=== PATIENT | male | born 1965 | race Caucasian/White ===

== ENCOUNTER 2024-12-07 15:51 | Emergency (ER) | payer SELFPAY ==
[~2024-12-07] VITALS: Ht 177.8 cm; Wt 80.9 kg
[2024-12-07 16:33] LABS: BASO # 0.1 10^3/uL (0.0-0.2); BASO % 0.6 % (0.0-1.0); EOS # 0.2 10^3/uL (0.0-0.5); EOS % 1.9 % (0.0-3.0); HEMATOCRIT 44.5 % (42.0-52.0); HEMOGLOBIN 15.5 g/dl (13.5-17.5); LYMPH % 35.8 % (24.0-44.0); MEAN CORPUSCULAR HGB CONC 34.8 g/dl (32.0-36.5); MEAN CORPUSCULAR VOLUME 86.1 fl (80.0-96.0); MONO # 0.5 10^3/uL (0.0-0.8); MONO % 6.3 % (2.0-8.0); NEUTROPHILS # 4.6 10^3/uL (1.5-8.5); PLATELET COUNT, AUTOMATED 184 10^3/uL (150-450); RED BLOOD COUNT 5.17 10^6/uL (4.30-6.10); WHITE BLOOD COUNT 8.3 10^3/uL (4.0-10.0)
[2024-12-07 17:08] LABS: BLOOD UREA NITROGEN 22 MG/DL (9-23); CARBON DIOXIDE LEVEL 32 MMOL/L (20-31); CHLORIDE LEVEL 99 MMOL/L (98-107); CREATININE FOR GFR 0.83 MG/DL (0.70-1.30); GLOMERULAR FILTRATION RATE > 60.0 (>49); GLUCOSE, FASTING 307 MG/DL (74-106); SODIUM LEVEL 142 MMOL/L (136-145)
[2024-12-07 17:11] LABS: INR 0.94; PARTIAL THROMBOPLASTIN TIME 26.6 SECONDS (24.8-34.2); PROTHROMBIN TIME 12.9 SECONDS (12.5-14.5)
[2024-12-07] MEDS ORDERED: ISOVUE-370 76% 100ML VIAL As Ordered ONE (17:23)
[2024-12-07] MEDS: LABETALOL 100MG/20ML VIAL IV STA ×2 (18:28→18:55)
[2024-12-07] MEDS ORDERED: LABE200T5 PO (19:56)
[2024-12-07 20:00] VITALS: BP 152/93; TEMP 97.9; O2SAT 95
[2024-12-07] MEDS: LABETALOL 200 MG TAB PO ONE (20:00)
== END 2024-12-07 20:12 | disposition home or self-care (01) ==
LOC: M ED 15:51
DX: I10 Essential (primary) hypertension (principal); H53.131 Sudden visual loss, right eye; Z79.899 Other long term (current) drug therapy
CPT/HCPCS: 70450; 70496; 70498; 80048; 85025; 85610; 85730; 93005; 96374; 99284; J1920; Q9967

== ENCOUNTER → 2024-12-30 | Outpatient (REF) | payer OTHER ==
[~2024-12-30] MED LIST: LABE200T5 PO
[2024-12-30 18:38] LABS: PSA SCREENING 1.13 NG/ML (< 4.00)
[2024-12-30 18:42] LABS: THYROID STIMULATING HORMONE 2.585 uIU/ML (0.55-4.78)
[2024-12-30 18:43] LABS: ALBUMIN 3.9 G/DL (3.2-5.2); ALKALINE PHOSPHATASE 89 U/L (40-129); ALT/SGPT 31 U/L (7.0-40); AST/SGOT 15 U/L (<34); BILIRUBIN,TOTAL 0.5 MG/DL (0.3-1.2); BLOOD UREA NITROGEN 23 MG/DL (9-23); CALCIUM LEVEL 9.8 MG/DL (8.3-10.6); CARBON DIOXIDE LEVEL 30 MMOL/L (20-31); CHLORIDE LEVEL 102 MMOL/L (98-107); CHOLESTEROL LEVEL 196 MG/DL (<200); CHOLESTEROL RISK RATIO 5.79 (<5); CREATININE FOR GFR 0.92 MG/DL (0.70-1.30); GLOMERULAR FILTRATION RATE > 60.0 (>49); GLUCOSE, FASTING 180 MG/DL (74-106); HDL CHOLESTEROL 33.8 MG/DL (>40); LDL CHOLESTEROL 100.8 MG/DL (<100); NON-HDL-C 162.2 MG/DL; POTASSIUM SERUM 4.8 MMOL/L (3.5-5.1); SODIUM LEVEL 141 MMOL/L (136-145); TOTAL PROTEIN 7.6 G/DL (5.7-8.2); TRIGLYCERIDES LEVEL 307 MG/DL (<150)
[2024-12-30 18:44] LABS: TOTAL 25(OH) VITAMIN D 28.9 NG/ML (20.0-100.0)
[2024-12-30 18:54] LABS: HEMOGLOBIN A1c 9.1 % (4.0-6.0)
[2024-12-30 19:08] LABS: HIV 1&2 SCREEN NEGATIVE (NEGATIVE)
[2024-12-30 19:15] LABS: HEPATITIS C VIRUS ABY INDEX 0.04 INDEX (<0.8)
== END ==
LOC: M LAB REF 17:35
PROVIDERS: ATTEND Physician Assistant
DX: I10 Essential (primary) hypertension (principal); E55.9 Vitamin D deficiency, unspecified; Z11.9 Encounter for screening for infectious and parasitic diseases, unspecified; Z12.5 Encounter for screening for malignant neoplasm of prostate

== ENCOUNTER 2025-01-17 08:52 | Emergency (ER) | payer OTHER ==
[~2025-01-17] VITALS: Ht 177.8 cm; Wt 78.2 kg
[2025-01-17 09:55] LABS: BASO # 0.1 10^3/uL (0.0-0.2); BASO % 0.5 % (0.0-1.0); EOS # 0.1 10^3/uL (0.0-0.5); EOS % 0.6 % (0.0-3.0); HEMATOCRIT 43.8 % (42.0-52.0); HEMOGLOBIN 14.9 g/dl (13.5-17.5); LYMPH # 1.8 10^3/uL (1.5-5.0); LYMPH % 17.6 % (24.0-44.0); MEAN CORPUSCULAR HEMOGLOBIN 29.5 pg (27.0-33.0); MEAN CORPUSCULAR VOLUME 86.7 fl (80.0-96.0); MONO # 0.5 10^3/uL (0.0-0.8); MONO % 4.6 % (2.0-8.0); NEUTROPHILS # 7.6 10^3/uL (1.5-8.5); NEUTROPHILS % 76.4 % (36.0-66.0); PLATELET COUNT, AUTOMATED 212 10^3/uL (150-450); RED BLOOD COUNT 5.05 10^6/uL (4.30-6.10); WHITE BLOOD COUNT 9.9 10^3/uL (4.0-10.0)
[2025-01-17 09:58] LABS: VENOUS BASE EXCESS -0.1 (-2.0-2.0); VENOUS HCO3 27.7 MMOL/L (23.0-27.0); VENOUS O2 SATURATION 53.2 % (60.0-80.0); VENOUS PARTIAL PRESSURE CO2 57.4 mmHg (38.0-50.0); VENOUS PARTIAL PRESSURE O2 29.1 mmHg (30.0-50.0); VENOUS PH 7.301 UNITS (7.330-7.430); VENOUS STANDARD HCO3 23.2 MMOL/L; VENOUS TOTAL CO2 29.4 MMOL/L (24.0-28.0)
[2025-01-17 10:08] LABS: HEMOGLOBIN A1c 8.6 % (4.0-6.0)
[2025-01-17 10:21] LABS: LIPASE 76 U/L (12-53)
[2025-01-17 10:23] LABS: ACETONE/KETONE 0.15 MMOL/L (0.02-0.27); ALBUMIN 4.1 G/DL (3.2-5.2); ALKALINE PHOSPHATASE 86 U/L (40-129); ALT/SGPT 26 U/L (7.0-40); AST/SGOT 14 U/L (<34); BILIRUBIN,DIRECT 0.2 MG/DL (<0.4); BILIRUBIN,TOTAL 0.8 MG/DL (0.3-1.2); BLOOD UREA NITROGEN 23 MG/DL (9-23); CARBON DIOXIDE LEVEL 29 MMOL/L (20-31); CHLORIDE LEVEL 102 MMOL/L (98-107); CREATININE FOR GFR 1.14 MG/DL (0.70-1.30); GLOMERULAR FILTRATION RATE > 60.0 (>49); GLUCOSE, FASTING 279 MG/DL (74-106); POTASSIUM SERUM 4.7 MMOL/L (3.5-5.1); SODIUM LEVEL 139 MMOL/L (136-145); TOTAL PROTEIN 7.9 G/DL (5.7-8.2)
[2025-01-17 10:26] LABS: OSMOLALITY SERUM 317 MOSM/KG (275-295)
[2025-01-17 12:04] LABS: CK-MB VALUE MASS 1.1 NG/ML (<3.6)
[2025-01-17 12:05] LABS: MB/CK RELATIVE INDEX 1.8 (< OR =4)
[2025-01-17] MEDS: NS (Normal Saline) 0.9% 1,000 ML IV ONE (12:14)
[2025-01-17] MEDS: HumuLIN R (REGULAR) INSULIN (NovoLIN R) **100U/ML** PER UNIT IV ONE (12:14)
[2025-01-17 13:46] LABS: VENOUS BASE EXCESS -2.4 (-2.0-2.0); VENOUS HCO3 23.4 MMOL/L (23.0-27.0); VENOUS PARTIAL PRESSURE CO2 43.9 mmHg (38.0-50.0); VENOUS PH 7.344 UNITS (7.330-7.430); VENOUS STANDARD HCO3 22.1 MMOL/L; VENOUS TOTAL CO2 24.7 MMOL/L (24.0-28.0)
[2025-01-17] MEDS ORDERED: FARX1TAB3 PO (13:53)
[2025-01-17] MEDS ORDERED: LABE20TAB PO (13:53)
[2025-01-17] MEDS ORDERED: THERTAB52 PO (13:53)
[2025-01-17] MEDS ORDERED: LOSA50TA28 PO (13:53)
[2025-01-17] MEDS ORDERED: METF-838 PO (13:53)
[2025-01-17] MEDS ORDERED: HOME MED LIST COMPLETE! XX SCH (13:55)
[2025-01-17 14:46] VITALS: BP 167/96; TEMP 97.7; O2SAT 95
== END 2025-01-17 14:49 | disposition home or self-care (01) ==
LOC: M ED 08:52
DX: E11.65 Type 2 diabetes mellitus with hyperglycemia (principal); I10 Essential (primary) hypertension; Z79.4 Long term (current) use of insulin; Z79.899 Other long term (current) drug therapy
CPT/HCPCS: 80048; 80076; 82010; 82550; 82553; 82803; 83036; 83605; 83690; 83930; 84484; 85025; 93005; 93041; 94760; 96361; 96374; 99285; J1815

== ENCOUNTER → 2025-01-20 | Outpatient (REF) | payer OTHER ==
[~2025-01-20] MED LIST changes: +FARX1TAB3 PO; +LABE20TAB PO; +LOSA50TA28 PO; +METF-838 PO; +THERTAB52 PO
[2025-01-21 13:33] LABS: CREATININE, URINE 93.2 MG/DL; MAU/CREAT RATIO 114.8 MCG/MG (0.0-30.0)
== END ==
LOC: M LAB REF 12:15
PROVIDERS: ATTEND Physician Assistant
DX: I10 Essential (primary) hypertension (principal)

== ENCOUNTER → 2025-06-15 | Outpatient (REF) | payer OTHER ==
[2025-06-16 12:47] LABS: APPEARANCE, URINE CLOUDY (CLEAR); BACTERIA, URINE AUTO NEGATIVE (NEGATIVE); BILIRUBIN, URINE AUTO NEGATIVE (NEGATIVE); BLOOD, URINE BLOOD NEGATIVE (NEGATIVE); GLUCOSE, URINE (UA) AUTO NEGATIVE (NEGATIVE); KETONE, URINE AUTO NEGATIVE (NEGATIVE); LEUKOCYTE ESTERASE, URINE AUTO NEGATIVE (NEGATIVE); MUCUS, URINE SMALL (NEGATIVE); NITRITE, URINE AUTO NEGATIVE (NEGATIVE); PROTEIN, URINE AUTO NEGATIVE (NEGATIVE); RBC, URINE AUTO 0 /HPF (0-3); SPECIFIC GRAVITY URINE AUTO 1.019 (1.002-1.035); SQUAMOUS EPITHELIAL CELL UR AU 0 /HPF (0-6); UROBILINOGEN, URINE AUTO 0.2 mg/dL (0.0-2.0); WBC, URINE AUTO 0 /HPF (0-3)
[2025-06-16 14:41] LABS: CREATININE, URINE 86.3 MG/DL; MALB URINE SIEMENS 14.0 MG/L; MAU/CREAT RATIO 16.2 MCG/MG (0.0-30.0)
== END ==
LOC: M LAB REF 12:11
PROVIDERS: ATTEND Physician Assistant
DX: E11.9 Type 2 diabetes mellitus without complications (principal)

== ENCOUNTER → 2025-06-21 | Outpatient (REF) | payer OTHER ==
[2025-06-21 15:09] LABS: ALT/SGPT 33 U/L (7.0-40); AST/SGOT 26 U/L (<34); CALCIUM LEVEL 9.3 MG/DL (8.3-10.6); CARBON DIOXIDE LEVEL 27 MMOL/L (20-31); CHLORIDE LEVEL 103 MMOL/L (98-107); CHOLESTEROL LEVEL 195 MG/DL (<200); CHOLESTEROL RISK RATIO 4.48 (<5); CREATININE FOR GFR 0.83 MG/DL (0.70-1.30); GLOMERULAR FILTRATION RATE > 90.0 (>49); LDL CHOLESTEROL 132.1 MG/DL (<100); NON-HDL-C 151.5 MG/DL; POTASSIUM SERUM 4.5 MMOL/L (3.5-5.1); SODIUM LEVEL 140 MMOL/L (136-145); TRIGLYCERIDES LEVEL 97 MG/DL (<150)
== END ==
LOC: M LAB REF 14:19
PROVIDERS: ATTEND Physician Assistant
DX: E78.5 Hyperlipidemia, unspecified (principal)